=== PATIENT | female | born 1940 | race Caucasian/White ===

== ENCOUNTER 2016-08-04 19:25 | Emergency (ER) | payer MEDICARE ==
[~2016-08-04] VITALS: Ht 162.6 cm; Wt 48.0 kg
[~2016-08-04 19:25] MED LIST: PRED-503 PO; VENTAER INH; ZITHTAB PO
[2016-08-04 19:35] VITALS: BP 152/110; PULSE 116; RESP 18; TEMP 98.8; O2SAT 96
[2016-08-04 19:53] VITALS: BP 139/95; PULSE 89; RESP 18; TEMP 98.8; O2SAT 96
--- NOTE | 2016-08-04 20:07 | PD ---
HPI Chief Complaint: Injury Time Seen by Provider: 19:55 Travel History International Travel<30 days: No Contact w/Intl Traveler<30days: No Traveled to known affect area: No History of Present Illness HPI 76-year-old female presents to the emergency department for complaint of left wrist and hand injury 2 weeks ago while working on her car. Patient states she lifted the foot of her car to change the antifreeze and held up the lorenzo with her left hand. Patient denies any injury at the time. Patient noted subsequently some swelling and pain in the left radial hand and wrist area. Patient subsequently noticed over the past 2 weeks. Of swelling of the left hand and wrist area. Patient states swelling has decreased but pain has increased. Patient denies any increased redness warmth ascending erythema axillary pain or lymphadenopathy. Patient states she's been using a preformed Velcro wrist splint for the past 3 days with some symptom relief. Patient denies any previous left wrist or hand pain. Patient is right-handed. Patient has taken no medications for the discomfort. Patient reports her pain as 10 over 10 in intensity. Patient also reports range of motion and use of wrist and left hand increased pain. Patient denies history of hypertension diabetes dyslipidemia and arthritis. Patient does smoke cigarettes and occasionally drinks alcohol. PFSH Past Medical History Narrative Medical Anxiety, dyslipidemia; appendectomy hysterectomy benign tumor excision of kidney ; tobacco use alcohol use; nursing notes reviewed Anxiety: Yes High Cholesterol: Yes Diminished Hearing: No Hypertension: Yes Respiratory: Yes Immunizations Current: No Pneumonia: Yes Tetanus Vaccination: Unknown Influenza Vaccination: No ?: Not Menopausal: Yes Ectopic : Yes Past Surgical History Genitourinary Surgery: Yes (BENIGN TUMOR LT KIDNEY) Gynecologic Surgery: Yes (ECTOPIC AND HYSTERECTOMY) Hysterectomy: Yes Social History Alcohol Use: Yes (WINE OCCASIONALLY- "2 SCOTCH AND TORRES [place] (02/05)) Tobacco Use: Yes (03/27 PPD) Substance Use: No Allergies-Medications (Allergen,Severity, Reaction): Coded Allergies: Tramadol (Verified Allergy, Severe, 08/04/16) Demerol (Verified Adverse Reaction, Severe, Nausea/Vomiting, 08/04/16) Morphine (Verified Adverse Reaction, Intermediate, Nausea/Vomiting, ) Vicodin (Verified Adverse Reaction, Intermediate, N/V, 08/04/16) Reported Meds & Prescriptions Reported Meds & Active Scripts Active No Active Prescriptions or Reported Medications Review of Systems Except as stated in HPI: all other systems reviewed are Neg General / Constitutional: No: Fever, Chills HENT: No: Congestion Cardiovascular: No: Chest Pain or Discomfort Respiratory: No: Shortness of Breath Gastrointestinal: No: Abdominal Pain Genitourinary: No: Flank Pain Musculoskeletal: Positive: Limited ROM (left wrist and thumb), Pain (left wrist thumb hand) Skin: No Rash Neurologic: No: Weakness Psychiatric: No: Anxiety Hematologic/Lymphatic: No: Lymph Node Enlargement Physical Exam Narrative GENERAL: Well-developed pleasant female in no acute distress no respiratory distress SKIN: Warm and dry. HEAD: Normocephalic. EYES: No scleral icterus. No injection or drainage. NECK: Supple, trachea midline. No JVD or lymphadenopathy. CARDIOVASCULAR: Regular rate and rhythm without murmurs, gallops, or rubs. RESPIRATORY: Breath sounds equal bilaterally. No accessory muscle use. GASTROINTESTINAL: Abdomen soft, non-tender, nondistended. MUSCULOSKELETAL: No cyanosis, or edema. Left wrist tenderness over the distal radius into the anatomical snuffbox and overlying the metacarpal-carpal and metacarpal-phalangeal joints first; thumb apposition intact; capillary refill brisk and less than 2 seconds per digit; digits are neurovascular tendon intact ; no wrist edema erythema increased warmth ecchymosis or abrasion; radial pulses are 2+ to palpation; proximally no ascending erythema and no axillary lymphadenopathy. BACK: Nontender without obvious deformity. No CVA tenderness. Data Data Last Documented VS Vital Signs Date Time Temp Pulse Resp B/P Pulse Ox O2 Delivery O2 Flow Rate FiO2 08/04/16 19:53 96 Room Air 08/04/16 19:53 98.8 89 18 139/95 Orders Wrist, Complete ([id number]) (08/04/16 ) Hand, Complete ([id number]) (08/04/16 ) MDM Medical Decision Making Medical Screen Exam Complete: Yes Emergency Medical Condition: Yes Medical Record Reviewed: Yes Interpretation(s) Last Impressions Wrist X-Ray 08/04/16 0000 Signed Impressions: Service Date/Time: Thursday, August 04, 2016 20:16 - CONCLUSION: Unremarkable examination of the left wrist. Reginaldo Strickland MD Hand X-Ray 08/04/16 0000 Signed Impressions: Service Date/Time: Thursday, August 04, 2016 20:16 - CONCLUSION: Unremarkable examination of the left hand. Reginaldo Strickland MD Differential Diagnosis Sprain strain tendinitis occult fracture Narrative Course Imaging studies of the left hand and wrist obtained @ 9:04 went to room to tell patient imaging results and patient had eloped Diagnosis Primary Impression: Left wrist sprain Qualified Code: S63.502A - Left wrist sprain, initial encounter Referrals: Primary Care Physician as needed Additional Instructions: Continue to use Velcro splint as needed May take as tolerated acetaminophen and/or ibuprofen for minor to moderate pain Follow-up with your primary care provider as needed Return to the emergency department for any concerns or change in condition or as needed Scripts No Active Prescriptions or Reported Meds Disposition: 01 DISCHARGE HOME Condition: Stable Liliya Joya MD August 04, 2016 20:07
--- NOTE | 2016-08-04 20:36 | RADHPO ---
EXAM DATE/TIME: 08/04/2016 20:16 [facility] COMPARISON: No previous studies available for comparison. INDICATIONS : Entire left wrist pain after lifting car lorenzo. MEDICAL HISTORY : None. SURGICAL HISTORY : None. ENCOUNTER: Initial ACUITY: 2 weeks PAIN SCORE: 8/10 LOCATION: Left upper extremity FINDINGS: Three view examination of the left wrist demonstrates no soft tissue swelling, dislocation, or fractu re. The carpal bones are in normal alignment. The joint spaces are maintained. Bony mineralization is normal. CONCLUSION: Unremarkable examination of the left wrist. Reginaldo Strickland MD on August 04, 2016 at 20:33 Board Certified Radiologist. This report was verified electronically.
--- NOTE | 2016-08-04 20:37 | RADHPO ---
EXAM DATE/TIME: 08/04/2016 20:16 [facility] COMPARISON: No previous studies available for comparison. INDICATIONS : Entire left hand pain after lifting car lorenzo. MEDICAL HISTORY : None. SURGICAL HISTORY : None. ENCOUNTER: Initial ACUITY: 2 weeks PAIN SCORE: 8/10 LOCATION: Left upper extremity FINDINGS: Three view examination of the left hand demonstrates no soft tissue swelling, dislocation, or fractur e. The carpal bones appear intact. The interphalangeal and metacarpophalangeal joints are intact. Bony mineralization is normal. CONCLUSION: Unremarkable examination of the left hand. Reginaldo Strickland MD on August 04, 2016 at 20:34 Board Certified Radiologist. This report was verified electronically.
== END 2016-08-04 21:17 | disposition home or self-care (01) ==
LOC: PHED 19:25
DX: S63.502A Unspecified sprain of left wrist, initial encounter (principal); M79.642 Pain in left hand; I10 Essential (primary) hypertension; E78.5 Hyperlipidemia, unspecified; F17.200 Nicotine dependence, unspecified, uncomplicated; Z87.09 Personal history of other diseases of the respiratory system; Z86.59 Personal history of other mental and behavioral disorders; X58.XXXA Exposure to other specified factors, initial encounter
CPT/HCPCS: 73110; 73130; 99283

== ENCOUNTER 2016-08-24 11:12 | Emergency (ER) | payer SELFPAY ==
[~2016-08-24] VITALS: Ht 162.6 cm; Wt 47.9 kg
[2016-08-24 11:19] VITALS: BP 159/95; PULSE 119; RESP 15; TEMP 98.6; O2SAT 95
--- NOTE | 2016-08-24 11:57 | PD ---
HPI Chief Complaint: Pain: Acute or Chronic Time Seen by Provider: 11:51 Travel History International Travel<30 days: No Contact w/Intl Traveler<30days: No Traveled to known affect area: No History of Present Illness HPI 76-year-old female presents to the emergency room for evaluation of left wrist pain and swelling for the past several weeks. Patient states she first injured it by trying to push up on a heavy lorenzo. The following day she developed extreme pain in her left wrist. She tried to take care of herself but the pain kept getting worse. She came to the emergency room 10 days ago where she had x- rays done but states she could not wait for the results. Patient states over the past 2 days it has become excruciating. She has been taking Aleve at night to help with the pain. Patient localizes the pain to the ulnar wrist and thumb. Pain is severe with active range of motion. Patient states she has been unable to do her hair or perform any activities of daily living. PFSH Past Medical History Anxiety: Yes High Cholesterol: Yes Diminished Hearing: No Hypertension: Yes Respiratory: Yes Immunizations Current: No Pneumonia: Yes Tetanus Vaccination: Unknown ?: Not Menopausal: Yes Ectopic : Yes Past Surgical History Genitourinary Surgery: Yes (BENIGN TUMOR LT KIDNEY) Gynecologic Surgery: Yes (ECTOPIC AND HYSTERECTOMY) Hysterectomy: Yes Social History Alcohol Use: Yes (WINE OCCASIONALLY- "2 SCOTCH AND TORRES TONIGHT (02/05)) Tobacco Use: Yes (03/27 PPD) Substance Use: No Allergies-Medications (Allergen,Severity, Reaction): Coded Allergies: Tramadol (Verified Allergy, Severe, 08/24/16) Demerol (Verified Adverse Reaction, Severe, Nausea/Vomiting, 08/24/16) Morphine (Verified Adverse Reaction, Intermediate, Nausea/Vomiting, 08/24/16 ) Vicodin (Verified Adverse Reaction, Intermediate, N/V, 08/24/16) Reported Meds & Prescriptions Reported Meds & Active Scripts Active No Active Prescriptions or Reported Medications Review of Systems Except as stated in HPI: all other systems reviewed are Neg Physical Exam Narrative GENERAL: Well-nourished, well-developed female in no acute distress. Afebrile. Ambulatory. SKIN: Focused skin assessment warm/dry. No erythema or ecchymosis. HEAD: Normocephalic. EYES: No scleral icterus. No injection or drainage. NECK: Supple, trachea midline. No JVD or lymphadenopathy. CARDIOVASCULAR: Regular rate and rhythm without murmurs, gallops, or rubs. RESPIRATORY: Breath sounds equal bilaterally. No accessory muscle use. EXTREMITY: Left wrist extremely tender to palpation on the ulnar side. Tenderness to palpation of the thumb. Less than 2 second capillary refill distally. 2+ radial pulse. Limited range of motion of the wrist secondary to pain. No significant pain with passive range of motion. Mild to moderate edema of the wrist. Compartments soft. Data Data Last Documented VS Vital Signs Date Time Temp Pulse Resp B/P Pulse Ox O2 Delivery O2 Flow Rate FiO2 08/24/16 11:19 98.6 119 15 159/95 95 Orders Hand, Complete ([id number]) (08/24/16 ) Acetamin-Hydrocod 325-5 Mg ([place] 5-325 (08/24/16 12:00) Ondansetron Odt (Zofran Odt) (08/24/16 12:00) MDM Medical Decision Making Medical Screen Exam Complete: Yes Emergency Medical Condition: Yes Medical Record Reviewed: Yes Differential Diagnosis Sprain versus tenosynovitis versus occult fracture Narrative Course 76-year-old female presents to the emergency room for evaluation of worsening left wrist pain. Patient injured her wrist approximately 2 weeks ago. She came to the emergency room 10 days ago and had x-rays that were negative. States 2 days ago it worsened. Pain is localized to the left thumb and right ulnar wrist. Worsened with any range of motion. Patient refuses to move her wrist secondary to pain but there is no pain with passive range of motion. Left wrist is neurovascularly intact with 2+ radial pulse. No erythema or ecchymosis. Mild edema of the left wrist. Repeat x-rays were performed to rule out occult fracture. X-rays were negative. She was given Lortab in the emergency room because she was crying in pain and states it improved her symptoms. She'll be discharged with prescription for the same. She was given a Velcro wrist splint in the emergency room. Patient will follow up with a hand surgeon if symptoms persist or return to the emergency room for worsening symptoms. She understands and agrees to plan. Diagnosis Primary Impression: Tenosynovitis of left hand Referrals: Primary Care Physician Patient Instructions: General Instructions, Tenosynovitis (ED) Additional Instructions: Rest and drink plenty of fluids. Take Lortab as directed, as needed for pain. Do not drink alcohol or drive while taking this medication. Take Tylenol with food as directed, as needed for pain. Apply ice to the affected area for 20 minutes at a time, as needed for pain and swelling. Follow-up with a primary care physician or hand surgeon. Return to the emergency room for worsening symptoms. Med/Other Pt SpecificInfo: Prescription(s) given Scripts No Active Prescriptions or Reported Meds Disposition: 01 DISCHARGE HOME Condition: Stable Vivian Marquez Aug 24, 2016 11:57
[2016-08-24] MEDS ORDERED: ACETAMINOPHEN/HYDROcodone 325 MG/5 MG TAB PO ONE (12:00)
[2016-08-24] MEDS ORDERED: ONDANSETRON ODT 4 MG TAB PO ONE (12:00)
--- NOTE | 2016-08-24 12:29 | RADHPO ---
EXAM DATE/TIME: 08/24/2016 11:57 [facility] COMPARISON: HAND LEFT COMPLETE ([id number]), August 04, 2016, 20:16. INDICATIONS : Left hand and wrist pain after lifting the lorenzo of car 2 weeks ago, pain started 2 days ago. MEDICAL HISTORY : None. SURGICAL HISTORY : None. ENCOUNTER: Initial ACUITY: 2 days PAIN SCORE: 0/10 LOCATION: Left hand FINDINGS: 3 views of the left hand demonstrate no acute fracture or dislocation. The bones are under mineralize d. No soft tissue abnormality or radiopaque foreign body is identified. CONCLUSION: Under mineralized bones. No fracture or acute finding is identified. Reginaldo Buckner MD on August 24, 2016 at 12:26 Board Certified Radiologist. This report was verified electronically.
[2016-08-24] MEDS ORDERED: HYDR-3533 PO (12:53)
[2016-08-24] MEDS ORDERED: ZOFR4TAB PO (12:53)
== END 2016-08-24 13:02 | disposition home or self-care (01) ==
LOC: PHEFT 11:12
DX: M65.9 Synovitis and tenosynovitis, unspecified (principal)
CPT/HCPCS: 73130; 99284; L3908

== ENCOUNTER 2016-11-11 13:53 | Observation (INO) | payer SELFPAY ==
[~2016-11-11] VITALS: Ht 162.6 cm; Wt 46.8 kg
[~2016-11-11 13:53] MED LIST changes: +HYDR-3533 PO; -PRED-503 PO; -VENTAER INH; -ZITHTAB PO; +ZOFR4TAB PO
[2016-11-11 13:59] VITALS: BP 168/80; PULSE 107; RESP 18; TEMP 98.7; O2SAT 97
[2016-11-11] MEDS ORDERED: ASPIRIN 81 MG CHEW TAB PO ONE (14:45)
[2016-11-11] MEDS ORDERED: SODIUM CHLORIDE 0.9% FLUSH 10 ML FLUSH IVF PRN (14:45)
--- NOTE | 2016-11-11 15:04 | PD ---
HPI Chief Complaint: Chest Pain Time Seen by Provider: 14:32 Travel History International Travel<30 days: No Contact w/Intl Traveler<30days: No Traveled to known affect area: No History of Present Illness HPI Patient 76-year-old female presents emergency Department with evaluation of chest pain under her left breast which been going on and off for the past week. She states became fairly intense today. She states that when she was walking around the grocery store today she became very sweaty and had some mild shortness of breath mild nausea. She states she had a last stress test in 1974. Endorses smoking hypertension hyperlipidemia and and a strong family history of heart disease. States currently her pain is improving with rest. PFSH Past Medical History Anxiety: Yes High Cholesterol: Yes Diminished Hearing: No Hypertension: Yes Respiratory: Yes Immunizations Current: No Pneumonia: Yes Tetanus Vaccination: Unknown Influenza Vaccination: No ?: Not Menopausal: Yes Ectopic : Yes Past Surgical History Genitourinary Surgery: Yes (BENIGN TUMOR LT KIDNEY) Gynecologic Surgery: Yes (ECTOPIC AND HYSTERECTOMY) Hysterectomy: Yes Social History Alcohol Use: Yes (WINE OCCASIONALLY- "2 SCOTCH AND TORRES TONIGHT (02/05)) Tobacco Use: Yes (/2 PPD) Substance Use: No Allergies-Medications (Allergen,Severity, Reaction): Coded Allergies: tramadol (Unverified Allergy, Severe, 11/07/16) meperidine (Unverified Adverse Reaction, Severe, Nausea/Vomiting, 11/07/16) acetaminophen (Unverified Adverse Reaction, Intermediate, N/V, 11/07/16) hydrocodone (Unverified Adverse Reaction, Intermediate, N/V, 11/07/16) morphine (Unverified Adverse Reaction, Intermediate, Nausea/Vomiting, 11/07) Reported Meds & Prescriptions Reported Meds & Active Scripts Active Zofran (Ondansetron HCl) 4 Mg Tab 4 Mg PO Q12HR PRN Lortab (Hydrocodone-Acetaminophen) 5-325 Mg Tab 1 Tab PO Q6H PRN Review of Systems Except as stated in HPI: all other systems reviewed are Neg Physical Exam Narrative GENERAL: Well-developed well-nourished no obvious distress, thin, smells of cigarette smoke. SKIN: Focused skin assessment warm/dry. HEAD: Atraumatic. Normocephalic. EYES: Pupils equal and round. No scleral icterus. No injection or drainage. ENT: No nasal bleeding or discharge. Mucous membranes pink and moist. NECK: Trachea midline. No JVD. CARDIOVASCULAR: Regular rate and rhythm. No murmur appreciated. 2+ bilateral equal pulses in all 4 extremities. RESPIRATORY: No accessory muscle use. Clear to auscultation. Breath sounds equal bilaterally. GASTROINTESTINAL: Abdomen soft, non-tender, nondistended. Hepatic and splenic margins not palpable. MUSCULOSKELETAL: No obvious deformities. No clubbing. No cyanosis. No edema. NEUROLOGICAL: Awake and alert. No obvious cranial nerve deficits. Motor grossly within normal limits. Normal speech. PSYCHIATRIC: Appropriate mood and affect; insight and judgment normal. Data Data Last Documented VS Vital Signs Date Time Temp Pulse Resp B/P Pulse Ox O2 Delivery O2 Flow Rate FiO2 11/11/16 13:59 98.7 107 18 168/80 97 Orders Electrocardiogram (11/11/16 14:42) Basic Metabolic Panel (Bmp) (11/11/16 14:42) Ckmb (Isoenzyme) Profile (11/11/16 14:42) Complete Blood Count With Diff (11/11/16 14:42) Magnesium (Mg) (11/11/16 14:42) Prothrombin Time / Inr (Pt) (11/11/16 14:42) Act Partial Throm Time (Ptt) (11/11/16 14:42) Troponin I (11/11/16 14:42) Chest, Single Ap (11/11/16 14:42) Ecg Monitoring (11/11/16 14:42) Iv Access Insert/Monitor (11/11/16 14:42) Oximetry (11/11/16 14:42) Oxygen Administration (11/11/16 14:42) Aspirin Chew (Aspirin Chew) (11/11/16 14:45) Sodium Chloride 0.9% Flush (Ns Flush) (11/11/16 14:45) Admit Order (Ed Use Only) (11/11/16 ) Place In Observation (11/11/16 16:14) Activity Bed Rest With Brp (11/11/16 16:14) Vital Signs (Adult) Q4H (11/11/16 16:14) Cardiac Rhythm .As Directed (11/11/16 16:14) Notify Dr: Other .PRN (11/11/16 16:14) Notify Parameters (11/11/16 16:14) Resp Oxygen Nasal Cannula (11/11/16 ) Diet Npo (11/12/16 Breakfast) Diet Heart Healthy (11/11/16 Dinner) Ckmb (Isoenzyme) Profile (11/11/16 16:14) Ckmb (Isoenzyme) Profile (11/11/16 19:14) Troponin I (11/11/16 16:14) Troponin I (11/11/16 19:14) Electrocardiogram (11/11/16 16:14) Electrocardiogram (11/11/16 19:14) ^ Obtain (11/11/16 16:14) Sodium Chloride 0.9% Flush (Ns Flush) (11/11/16 16:15) Sodium Chloride 0.9% Flush (Ns Flush) (11/11/16 21:00) Ondansetron Inj (Zofran Inj) (11/11/16 16:15) Nitroglycerin Sl (Nitrostat Sl) (11/11/16 16:15) Aspirin (Aspirin) (11/12/16 09:00) Assembler Body / Telemetry ANTELMO.Q8H (11/11/16 16:14) Labs Laboratory Tests Test 11/11/16 15:06 White Blood Count 6.9 TH/MM3 Red Blood Count 3.84 MIL/MM3 Hemoglobin 11.9 GM/DL Hematocrit 35.8 % Mean Corpuscular Volume 93.2 FL Mean Corpuscular Hemoglobin 31.0 PG Mean Corpuscular Hemoglobin 33.3 % Concent Red Cell Distribution Width 14.1 % Platelet Count 207 TH/MM3 Mean Platelet Volume 8.6 FL Neutrophils (%) (Auto) 69.3 % Lymphocytes (%) (Auto) 20.9 % Monocytes (%) (Auto) 7.3 % Eosinophils (%) (Auto) 2.0 % Basophils (%) (Auto) 0.5 % Neutrophils # (Auto) 4.9 TH/MM3 Lymphocytes # (Auto) 1.4 TH/MM3 Monocytes # (Auto) 0.5 TH/MM3 Eosinophils # (Auto) 0.1 TH/MM3 Basophils # (Auto) 0.0 TH/MM3 CBC Comment DIFF FINAL Differential Comment Prothrombin Time 11.0 SEC Prothromb Time International 1.0 RATIO Ratio Activated Partial 26.2 SEC Thromboplast Time Sodium Level 138 MEQ/L Potassium Level 3.5 MEQ/L Chloride Level 103 MEQ/L Carbon Dioxide Level 30.6 MEQ/L Anion Gap 4 MEQ/L Blood Urea Nitrogen 12 MG/DL Creatinine 0.67 MG/DL Estimat Glomerular Filtration 86 ML/MIN Rate Random Glucose 113 MG/DL Calcium Level 9.3 MG/DL Magnesium Level 2.0 MG/DL Total Creatine Kinase 62 U/L Troponin I LESS THAN 0.02 NG/ML MDM Medical Decision Making Medical Screen Exam Complete: Yes Emergency Medical Condition: Yes Differential Diagnosis ACS, AMI, pneumonia, esophagitis, gastritis. Narrative Course Patient roomed emerged permit, EKG troponin negative. Chest x-ray negative. Last 24 hours Impressions Chest X-Ray 11/11/16 1442 Signed Impressions: Service Date/Time: Friday, November 11, 2016 14:45 - CONCLUSION: No acute cardiopulmonary disease. Laura Pedraza MD Discussed with her that despite her negative initial workup symptoms are strongly suggestive of ACS and recommended admission to the hospital for consideration of stress testing. Initially reluctant she is ultimately agreeable. She was discussed with Dr. Graff for observation.. Diagnosis Primary Impression: Chest pain Admitting Information Admitting Physician Requests: Observation Condition: Stable Luis Hui MD Nov 11, 2016 15:04
--- NOTE | 2016-11-11 15:09 | RADRPT ---
EXAM DATE/TIME: 11/11/2016 14:45 [facility] COMPARISON: CHEST SINGLE AP, March 25, 2016, 8:15. INDICATIONS : Chest pain. MEDICAL HISTORY : Bronchitis SURGICAL HISTORY : None. ENCOUNTER: Initial ACUITY: 2 days PAIN SCORE: 8/10 LOCATION: Left lower chest FINDINGS: The lungs are clear without infiltrate, nodule, or mass. There is no appreciable pleural effusion fo r technique. Heart and mediastinum are unremarkable. Skin fold is present overlapping the left upper chest. CONCLUSION: No acute cardiopulmonary disease. Laura Pedraza MD on November 11, 2016 at 15:07 Board Certified Radiologist. This report was verified electronically.
[2016-11-11 15:18] LABS: AUTOMATED NEUTROPHIL # 4.9 TH/MM3 (1.8-7.7); BASOPHIL % 0.5 % (0.0-2.0); EOSINOPHIL # 0.1 TH/MM3 (0-0.4); HEMATOCRIT 35.8 % (35.0-46.0); HEMO FLAGS DIFF FINAL; LYMPH % 20.9 % (9.0-44.0); LYMPHOCYTE # 1.4 TH/MM3 (1.0-4.8); MEAN CELL VOLUME 93.2 FL (80.0-100.0); MEAN CORPUSCULAR HGB CONC 33.3 % (32.0-36.0); MONO % 7.3 % (0.0-8.0); NEUT % 69.3 % (16.0-70.0); PLATELET COUNT 207 TH/MM3 (150-450); RED BLOOD COUNT 3.84 MIL/MM3 (4.00-5.30); RED CELL DISTRIBUTION WIDTH 14.1 % (11.6-17.2); WHITE BLOOD COUNT 6.9 TH/MM3 (4.0-11.0)
[2016-11-11 15:26] LABS: CHLORIDE 103 MEQ/L (98-107); POTASSIUM 3.5 MEQ/L (3.5-5.1); SODIUM (NA) 138 MEQ/L (136-145)
[2016-11-11 15:30] LABS: ANION GAP 4 MEQ/L (5-15); BICARBONATE 30.6 MEQ/L (21.0-32.0); BLOOD UREA NITROGEN 12 MG/DL (7-18)
[2016-11-11 15:33] LABS: GLOMERULAR FILTRATION RATE 86 ML/MIN (>89)
[2016-11-11 15:34] LABS: APTT (PATIENT) 26.2 SEC (24.3-30.1)
[2016-11-11 15:37] LABS: CREATINE KINASE 62 U/L (26-192)
[2016-11-11] MEDS ORDERED: SODIUM CHLORIDE 0.9% FLUSH 10 ML FLUSH IV FLUSH PRN (16:15)
[2016-11-11] MEDS ORDERED: ONDANSETRON HCL 4 MG/2 ML VIAL IV PRN (16:15)
[2016-11-11] MEDS ORDERED: NITROGLYCERIN 0.4 MG SL 25 TABS/BTL SL PRN (16:15)
--- NOTE | 2016-11-11 16:44 | HHI.HP ---
HPI Service Chest pain center Primary Care Physician No Primary Care Physician Admission Diagnosis Chest pain Diagnoses: Chief Complaint: Chest pain History of Present Illness Patient is a 76-year-old female who admits about a week of left-sided intermittent severe chest pain which usually resolved with aspirin. Today she had increased chest pain with diaphoresis that did not resolve. She came to the emergency room was found to have elevated blood pressure of 168/80. She was also tachycardic. Patient's pain is severe described as pressure. She is very anxious and nervous about any cardiac stress testing. Last evaluation for cardiology has been over 20 years ago and which she was being followed by the weathercaster for hyperlipidemia issues. She no longer takes any medications other than aspirin as needed. Hair her chest pain has resolved and her heart rate and blood pressure improved. Patient's been recommended for evaluation chest pain center. Review of Systems Constitutional: COMPLAINS OF: Weight loss (unintentional), DENIES: Diaphoretic episodes, Fatigue, Fever, Weight gain, Chills, Dizziness, Change in appetite, Night Sweats Endocrine: DENIES: Abnorml menstrual pattern, Heat/cold intolerance, Polydipsia , Polyuria, Polyphagia Eyes: DENIES: Blurred vision, Diplopia, Eye inflammation, Eye pain, Vision loss , Photosensitivity, Double Vision Ears, nose, mouth, throat: DENIES: Tinnitus, Hearing loss, Vertigo, Nasal discharge, Oral lesions, Throat pain, Hoarseness, Ear Pain, Running Nose, Epistaxis, Sinus Pain, Toothache, Odynophagia Respiratory: DENIES: Apneas, Cough, Snoring, Wheezing, Hemoptysis, Sputum production, Shortness of breath Cardiovascular: COMPLAINS OF: Chest pain, DENIES: Palpitations, Syncope, Dyspnea on Exertion, PND, Lower Extremity Edema, Orthopnea, Claudication Gastrointestinal: DENIES: Abdominal pain, Black stools, Bloody stools, Constipation, Diarrhea, Nausea, Vomiting, Difficulty Swallowing, Anorexia Genitourinary: DENIES: Abnormal vaginal bleeding, Dysmenorrhea, Dyspareunia, Sexual dysfunction, Urinary frequency, Urinary incontinence, Urgency, Hematuria , Dysuria, Nocturia, Vaginal discharge Musculoskeletal: DENIES: Joint pain, Muscle aches, Stiffness, Joint Swelling, Back pain, Neck pain Integumentary: DENIES: Abnormal pigmentation, Pruritus, Rash, Nail changes, Breast masses, Breast skin changes, Nipple discharge Hematologic/lymphatic: DENIES: Bruising, Lymphadenopathy Immunologic/allergic: DENIES: Eczema, Urticaria Neurologic: DENIES: Abnormal gait, Headache, Localized weakness, Paresthesias, Seizures, Speech Problems, Tremor, Poor Balance Psychiatric: COMPLAINS OF: Anxiety, DENIES: Confusion, Mood changes, Depression, Hallucinations, Agitation, Suicidal Ideation, Homicidal Ideation, Delusions Except as stated in HPI: all other systems reviewed are Neg Past Family Social History Past Medical History Bladder tumor Hyperlipidemia Past Surgical History Hysterectomy Bladder tumor resection Reported Medications Reviewed in the medical record, none Allergies: Coded Allergies: tramadol (Unverified Allergy, Severe, 11/07/16) meperidine (Unverified Adverse Reaction, Severe, Nausea/Vomiting, 11/07/16) acetaminophen (Unverified Adverse Reaction, Intermediate, N/V, 11/07/16) hydrocodone (Unverified Adverse Reaction, Intermediate, N/V, 11/07/16) morphine (Unverified Adverse Reaction, Intermediate, Nausea/Vomiting, 11/07) Active Ordered Medications Reviewed in the medical record Family History Mother at 58 from sudden cardiac , father's history is unknown She has 5 brothers and 4 sisters who all live in [place] Social History Patient smokes at least half a pack tobacco, she lives with her male partner, and drinks wine and liquor Physical Exam Vital Signs Vital Signs Date Time Temp Pulse Resp B/P Pulse Ox O2 Delivery O2 Flow Rate FiO2 11/11/16 13:59 98.7 107 18 168/80 97 Physical Exam GENERAL: This is a well-nourished, well-developed patient, in no apparent distress. SKIN: No rashes, ecchymoses or lesions. Cool and dry. HEAD: Atraumatic. Normocephalic. No temporal or scalp tenderness. EYES: Pupils equal round and reactive. Extraocular motions intact. No scleral icterus. No injection or drainage. ENT: Nose without bleeding, purulent drainage or septal hematoma. Throat without erythema, tonsillar hypertrophy or exudate. Uvula midline. Airway patent. NECK: Trachea midline. No JVD or lymphadenopathy. Supple, nontender, no meningeal signs. CARDIOVASCULAR: Sinus tachycardia with systolic 3/6 murmur otherwise without gallops, or rubs. RESPIRATORY: Clear to auscultation. Breath sounds equal bilaterally. No wheezes , rales, or rhonchi. GASTROINTESTINAL: Abdomen soft, non-tender, nondistended. No hepato-splenomegaly , or palpable masses. No guarding. MUSCULOSKELETAL: Extremities without clubbing, cyanosis, or edema. No joint tenderness, effusion, or edema noted. No calf tenderness. Negative Homans sign bilaterally. NEUROLOGICAL: Awake and alert. Cranial nerves II through XII intact. Motor and sensory grossly within normal limits. Five out of 5 muscle strength in all muscle groups. Normal speech. Laboratory Laboratory Tests Test 11/11/16 15:06 White Blood Count 6.9 Red Blood Count 3.84 Hemoglobin 11.9 Hematocrit 35.8 Mean Corpuscular Volume 93.2 Mean Corpuscular Hemoglobin 31.0 Mean Corpuscular Hemoglobin 33.3 Concent Red Cell Distribution Width 14.1 Platelet Count 207 Mean Platelet Volume 8.6 Neutrophils (%) (Auto) 69.3 Lymphocytes (%) (Auto) 20.9 Monocytes (%) (Auto) 7.3 Eosinophils (%) (Auto) 2.0 Basophils (%) (Auto) 0.5 Neutrophils # (Auto) 4.9 Lymphocytes # (Auto) 1.4 Monocytes # (Auto) 0.5 Eosinophils # (Auto) 0.1 Basophils # (Auto) 0.0 CBC Comment DIFF FINAL Differential Comment Prothrombin Time 11.0 Prothromb Time International 1.0 Ratio Activated Partial 26.2 Thromboplast Time Sodium Level 138 Potassium Level 3.5 Chloride Level 103 Carbon Dioxide Level 30.6 Anion Gap 4 Blood Urea Nitrogen 12 Creatinine 0.67 Estimat Glomerular Filtration 86 Rate Random Glucose 113 Calcium Level 9.3 Magnesium Level 2.0 Total Creatine Kinase 62 Troponin I LESS THAN 0.02 Result Diagram: 11/11/16 1506 11/11/16 1506 Imaging Last Impressions Chest X-Ray 11/11/16 1442 Signed Impressions: Service Date/Time: Friday, November 11, 2016 14:45 - CONCLUSION: No acute cardiopulmonary disease. Laura Pedraza MD Assessment and Plan Problem List: (1) Chest pain, atypical ICD Code: R07.89 Status: Acute Plan: Etiology not clear but certainly patient with multiple risk factors including family history of premature sudden cardiac , age, tobacco dependency and elevated blood pressure here Continue evaluation in the chest pain center, telemetry, cardiac enzymes, likely will need some cardiac stress testing in a.m. (probably pharmacological) Oxygen, aspirin, nitroglycerin as needed Adverse reaction acetaminophen and morphine confirmed per patient tsh, echo pending (2) Anxiety ICD Code: F41.9 Status: Acute Plan: Xanax as needed Code Status full code Discussed Condition With Patient, ER Candace Nieves MD Nov 11, 2016 16:43
[2016-11-11] MEDS ORDERED: ALPRAZolam 0.5 MG TAB PO PRN (16:45)
[2016-11-11 17:44] VITALS: BP 163/98; PULSE 79; O2SAT 96
[2016-11-11 18:05] LABS: CREATINE KINASE 56 U/L (26-192)
[2016-11-11] MEDS ORDERED: SODIUM CHLORIDE 0.9% FLUSH 10 ML FLUSH IV FLUSH SCH (21:00)
[2016-11-12] MEDS ORDERED: ASPIRIN 325 MG TAB PO SCH (09:00)
--- NOTE | 2016-11-12 15:21 | EKG ---
Date Performed: 11/11/2016 Time Performed: 14:33:35 PTAGE: 76 years EKG: Sinus rhythm NORMAL ECG PREVIOUS TRACING : 03/25/2016 07.50 Compared to previous tracing, inferior ST changes have impr josselyn. DOCTOR: Carmelo Granger Interpretating Date/Time 11/12/2016 15:20:37
--- NOTE | 2016-11-12 15:23 | EKG ---
Date Performed: 11/11/2016 Time Performed: 16:37:43 PTAGE: 76 years EKG: Sinus rhythm NORMAL ECG Since PREVIOUS TRACING , no significant change noted PREVIOUS TRACIN11/11/2016 14.33 DOCTOR: Carmelo Granger Interpretating Date/Time 11/12/2016 15:20:59
== END 2016-11-11 19:33 | disposition left against medical advice (07) ==
LOC: PHED 13:53 → PHEDA 16:15
PROVIDERS: ADMIT Hospitalist; ATTEND Hospitalist
DX: R07.89 Other chest pain (principal); I10 Essential (primary) hypertension; R00.0 Tachycardia, unspecified; R06.02 Shortness of breath; R61 Generalized hyperhidrosis; E78.5 Hyperlipidemia, unspecified; F41.9 Anxiety disorder, unspecified; Z82.49 Family history of ischemic heart disease and other diseases of the circulatory system; F17.200 Nicotine dependence, unspecified, uncomplicated; Z79.899 Other long term (current) drug therapy
CPT/HCPCS: 71010; 80048; 82550; 83735; 84484; 85025; 85610; 85730; 93005; 99285; G0378

== ENCOUNTER 2017-04-10 02:26 | Emergency (ER) | payer SELFPAY ==
[~2017-04-10] VITALS: Ht 162.6 cm; Wt 45.5 kg
[2017-04-10 02:35] VITALS: BP 142/86; PULSE 98; RESP 18; TEMP 97.8; O2SAT 96
--- NOTE | 2017-04-10 02:46 | PD ---
HPI Chief Complaint: Fall Time Seen by Provider: 02:41 Travel History International Travel<30 days: No Contact w/Intl Traveler<30days: No Traveled to known affect area: No History of Present Illness HPI 76-year-old female presents to the emergency department from home by EMS transport for complaint of right-sided rib pain. According the patient 2 hours prior to arrival to the emergency department she had a slip and fall the bathroom and thinks she hit her right chest wall against the toilet bowl. Patient has had right-sided rib pain shortness of breath since that time. Patient had had a drink of alcohol prior to her fall. Patient does not typically drink alcohol. Patient does not take any blood thinning agents. Patient states she did not hit her head did not have loss of consciousness did not injure her neck did not injure her back did not injure her abdomen or extremities. The patient rates her pain as 10 over 10 in intensity and it is worsened by taking a deep breath or movement. PFSH Past Medical History Narrative Medical Anxiety dyslipidemia hypertension pneumonia alcohol use tobacco use; nursing notes reviewed Anxiety: Yes High Cholesterol: Yes Diminished Hearing: No Hypertension: Yes Respiratory: Yes Immunizations Current: No Pneumonia: Yes ?: Not LMP: MENOPAUSAL Menopausal: Yes Ectopic : Yes Past Surgical History Genitourinary Surgery: Yes (BENIGN TUMOR LT KIDNEY) Gynecologic Surgery: Yes (ECTOPIC AND HYSTERECTOMY) Hysterectomy: Yes Social History Alcohol Use: Yes (WINE OCCASIONALLY- "2 SCOTCH AND TORRES TONIGHT (02/05)) Tobacco Use: Yes (03/27 PPD) Substance Use: No Allergies-Medications (Allergen,Severity, Reaction): Coded Allergies: tramadol (Unverified Allergy, Severe, 04/10/17) meperidine (Unverified Adverse Reaction, Severe, Nausea/Vomiting, 04/10/17) acetaminophen (Unverified Adverse Reaction, Intermediate, N/V, 04/10/17) hydrocodone (Unverified Adverse Reaction, Intermediate, N/V, 04/10/17) morphine (Unverified Adverse Reaction, Intermediate, Nausea/Vomiting, 04/10) Comments Patient is NOT allergic to tylenol --takes it daily; patient is NOT allergic to hydrocodone --makes nauseated on an empty stomach Reported Meds & Prescriptions Reported Meds & Active Scripts Active Zofran Odt (Ondansetron Odt) 4 Mg Tab 4 Mg SL Q6HR PRN Percocet (Oxycodone-Acetaminophen) 5-325 mg Tab 0.5-1 Tab PO Q6H PRN Review of Systems Except as stated in HPI: all other systems reviewed are Neg General / Constitutional: No: Fever Eyes: No: Visual changes HENT: No: Headaches, Neck Pain Cardiovascular: Positive: Chest Pain or Discomfort (right sided) Respiratory: Positive: Shortness of Breath, Pleuritic Pain Gastrointestinal: No: Abdominal Pain Genitourinary: No: Flank Pain Musculoskeletal: No: Myalgias, Arthralgias Skin: No Rash Neurologic: No: Weakness Psychiatric: No: Anxiety Hematologic/Lymphatic: No: Lymph Node Enlargement Physical Exam Narrative GENERAL: Thin elderly female in no acute distress no respiratory distress SKIN: Warm and dry. HEAD: Normocephalic. EYES: No scleral icterus. No injection or drainage. NECK: Supple, trachea midline. No JVD or lymphadenopathy. CARDIOVASCULAR: Regular rate and rhythm without murmurs, gallops, or rubs. Chest wall: No abrasion or ecchymosis tenderness to palpation. RESPIRATORY: Breath sounds equal bilaterally. No accessory muscle use. GASTROINTESTINAL: Abdomen soft, non-tender, nondistended. MUSCULOSKELETAL: No cyanosis, or edema. BACK: Nontender without obvious deformity. No CVA tenderness. Data Data Last Documented VS Vital Signs Date Time Temp Pulse Resp B/P (MAP) Pulse Ox O2 Delivery O2 Flow Rate FiO2 04/10/17 02:35 97.8 98 18 142/86 (104) 96 Orders Orders Ribs, Uni (W/Exp Cxr-Min 3vw) (04/10/17 ) Ed Discharge Order (04/10/17 04:19) MDM Medical Decision Making Medical Screen Exam Complete: Yes Emergency Medical Condition: Yes Medical Record Reviewed: Yes Interpretation(s) right rib XR: LOCATION: CONCLUSION: Right eighth rib fracture. Reginaldo Vega MD on April 10, 2017 at 3:45 Board Certified Radiologist. This report was verified electronically. Reginaldo Vega MD on April 10, 2017 at 4:10 Board Certified Radiologist. This report was verified electronically. Differential Diagnosis Single versus multiple rib fractures, pneumothorax, lung contusion, hemopneumothorax, chest wall contusion Narrative Course Imaging study of the right ribs ordered Imaging study consistent with distal right eighth rib fracture no pneumothorax patient informed of imaging results and given a one-time dose of Tylenol in the emergency department she'll be taking a cab home and given a prescription for Percocet and Zofran Diagnosis Primary Impression: Right rib fracture Referrals: Primary Care Physician call for appointment Patient Instructions: General Instructions Additional Instructions: Increase fluid hydration May take acetaminophen/Tylenol as needed for pain May take ibuprofen/Advil/Motrin 200-400 mg every 6-8 hours as needed for pain associated with inflammation May take narcotic pain medication as prescribed as tolerated however be aware this can increase risk for fall, impair judgment, cause constipation; you can NOT drink alcohol and take pain medication Follow-up with your primary care provider Tried to brace your chest wall for coughing or sneezing; return immediately to the nearest emergency department if after forceful cough sneeze laugh finger twisting he developed severe chest pain and shortness of breath to have reevaluation Return to the emergency department for any concerns or change in condition Med/Other Pt SpecificInfo: Prescription(s) given Scripts Ondansetron Odt (Zofran Odt) 4 Mg Tab 4 MG SL Q6HR Y for Nausea/Vomiting, #10 TAB 0 Refills Prov: Liliya Joya MD 04/10/17 Oxycodone-Acetaminophen (Percocet) 5-325 mg Tab 0.5-1 TAB PO Q6H Y for PAIN, #7 TAB 0 Refills Prov: Liliya Joya MD 04/10/17 Disposition: 01 DISCHARGE HOME Condition: Stable Liliya Joya MD Apr 10, 2017 02:46
--- NOTE | 2017-04-10 03:49 | RADRPT ---
EXAM DATE/TIME: 04/10/2017 03:11 CORRECTION Corrected on: April 10, 2017; [facility] COMPARISON: No previous studies available for comparison. INDICATIONS : Right upper chest pain after falling in the shower. MEDICAL HISTORY : None. SURGICAL HISTORY : None. ENCOUNTER: Initial ACUITY: 1 day PAIN SCORE: 8/10 LOCATION: Right upper chest FINDINGS: Multiple views of the right ribs were performed. There is fracturing of the anterior right eighth ri b just proximal to the costochondral junction. Expiratory view of the chest is negative for pneumotho rax. There are skin folds over the lower left chest. The lung markings can be seen beyond the skin fo lds. The mediastinal structures are midline. CONCLUSION: Right eighth rib fracture. Reginaldo Vega MD on April 10, 2017 at 3:45 Board Certified Radiologist. This report was verified electronically. Reginaldo Vega MD on April 10, 2017 at 4:10 Board Certified Radiologist. This report was verified electronically.
[2017-04-10] MEDS ORDERED: PERC5TAB12 PO (04:15)
[2017-04-10] MEDS ORDERED: ZOFR4TAB3 SL (04:15)
[2017-04-10 04:32] VITALS: BP 135/85; PULSE 85; RESP 18; TEMP 98.2; O2SAT 98
== END 2017-04-10 04:35 | disposition home or self-care (01) ==
LOC: PHED 02:26
DX: S22.31XA Fracture of one rib, right side, initial encounter for closed fracture (principal); E78.00 Pure hypercholesterolemia, unspecified; I10 Essential (primary) hypertension; F17.210 Nicotine dependence, cigarettes, uncomplicated; W01.198A Fall on same level from slipping, tripping and stumbling with subsequent striking against other object, initial encounter
CPT/HCPCS: 71101; 99284

== ENCOUNTER 2017-04-22 15:39 | Emergency (ER) | payer SELFPAY ==
[~2017-04-22] VITALS: Ht 162.6 cm; Wt 45.0 kg
[~2017-04-22 15:39] MED LIST changes: -HYDR-3533 PO; +PERC5TAB12 PO; -ZOFR4TAB PO; +ZOFR4TAB3 SL
[2017-04-22 15:54] VITALS: BP 142/79; PULSE 114; RESP 16; TEMP 98.2; O2SAT 93
[2017-04-22] MEDS ORDERED: CHERSYP2 PO (16:47)
--- NOTE | 2017-04-22 16:48 | PD ---
HPI Chief Complaint: Respiratory Symptoms Time Seen by Provider: 16:44 Travel History International Travel<30 days: No Contact w/Intl Traveler<30days: No Traveled to known affect area: No History of Present Illness HPI Patient reports a recent rib fracture. States the pressure for 5 days ago she got a cold which is improving but she's had a tickle in the back of her throat for this duration that she is not able to tolerate. Mild cough. Denies nausea vomiting diarrhea or fever. Denies any chest pain shortness of breath urinary or bowel symptoms. Concerns of weight loss. PFSH Past Medical History Anxiety: Yes High Cholesterol: Yes Diminished Hearing: No Hypertension: Yes Respiratory: Yes Immunizations Current: No Pneumonia: Yes ?: Not Menopausal: Yes Ectopic : Yes Past Surgical History Genitourinary Surgery: Yes (BENIGN TUMOR LT KIDNEY) Gynecologic Surgery: Yes (ECTOPIC AND HYSTERECTOMY) Hysterectomy: Yes Social History Alcohol Use: Yes (WINE OCCASIONALLY- "2 SCOTCH AND TORRES TONIGHT (02/05)) Tobacco Use: Yes (03/27 PPD) Substance Use: No Allergies-Medications (Allergen,Severity, Reaction): Coded Allergies: tramadol (Unverified Allergy, Severe, 04/22/17) meperidine (Unverified Adverse Reaction, Severe, Nausea/Vomiting, 04/22/17) acetaminophen (Unverified Adverse Reaction, Intermediate, N/V, 04/22/17) hydrocodone (Unverified Adverse Reaction, Intermediate, N/V, 04/22/17) morphine (Unverified Adverse Reaction, Intermediate, Nausea/Vomiting, 04/22) Reported Meds & Prescriptions Reported Meds & Active Scripts Active No Active Prescriptions or Reported Medications Review of Systems General / Constitutional: No: Fever Eyes: No: Visual changes HENT: No: Headaches Cardiovascular: No: Chest Pain or Discomfort Respiratory: Positive: Cough, No: Shortness of Breath Gastrointestinal: No: Abdominal Pain Genitourinary: No: Dysuria Musculoskeletal: No: Pain Skin: No Rash Neurologic: No: Weakness Psychiatric: No: Depression Endocrine: No: Polydipsia Hematologic/Lymphatic: No: Easy Bruising Physical Exam Narrative GENERAL: Well-nourished, well-developed patient. SKIN: Focused skin assessment warm/dry. HEAD: Normocephalic. Throat nonerythematous no adenopathy mild postnasal drip EYES: No scleral icterus. No injection or drainage. NECK: Supple, trachea midline. No JVD or lymphadenopathy. CARDIOVASCULAR: Regular rate and rhythm without murmurs, gallops, or rubs. RESPIRATORY: Breath sounds equal bilaterally. No accessory muscle use. GASTROINTESTINAL: Abdomen soft, non-tender, nondistended. MUSCULOSKELETAL: No cyanosis, or edema. BACK: Nontender without obvious deformity. No CVA tenderness. Data Data Last Documented VS Vital Signs Date Time Temp Pulse Resp B/P (MAP) Pulse Ox O2 Delivery O2 Flow Rate FiO2 04/22/17 15:54 98.2 114 16 142/79 (100) 93 MDM Medical Decision Making Medical Screen Exam Complete: Yes Emergency Medical Condition: Yes Differential Diagnosis Viral syndrome, postnasal drip, allergies Narrative Course Assessment and plan discussed with patient at bedside. Patient specifically states she can take codeine. Diagnosis Primary Impression: Postnasal drip Patient Instructions: General Instructions Additional Instructions: Encouraged rest fluids and Motrin, consider vitamin C and zinc, consider boost/ ensure with meals for weight loss. Consider nasal irrigation and regular salt water gargles. Consider fluticasone nasal spray. Return to emergency room with any onset of new symptoms. Follow-up with PCP. Med/Other Pt SpecificInfo: Prescription(s) given Scripts Guaifenesin-Codeine Liq (Cheratussin AC Liq) 100-10 Mg/5 Ml Syrp 5 ML PO Q4H Y for COUGH AND COLD SYMPTOMS, #120 ML 0 Refills Do not exceed 6 doses/24 hrs. Prov: Jessee Connor MD 04/22/17 Disposition: 01 DISCHARGE HOME Condition: Good Jessee Connor MD Apr 22, 2017 16:48
== END 2017-04-22 17:16 | disposition home or self-care (01) ==
LOC: PHED 15:39
DX: R09.82 Postnasal drip (principal); R05 Cough; F41.9 Anxiety disorder, unspecified; E78.00 Pure hypercholesterolemia, unspecified; I10 Essential (primary) hypertension; F17.200 Nicotine dependence, unspecified, uncomplicated; Z88.5 Allergy status to narcotic agent; Z88.6 Allergy status to analgesic agent
CPT/HCPCS: 99283

== ENCOUNTER 2017-05-24 21:33 | Emergency (ER) | payer MEDICARE, OTHER ==
[~2017-05-24] VITALS: Ht 162.6 cm; Wt 45.0 kg
[~2017-05-24 21:33] MED LIST changes: +CHERSYP2 PO; -PERC5TAB12 PO; -ZOFR4TAB3 SL
[2017-05-24 21:40] VITALS: BP 131/82; PULSE 101; RESP 18; TEMP 98.1; O2SAT 97
[2017-05-24 22:02] LABS: AUTOMATED NEUTROPHIL # 4.1 TH/MM3 (1.8-7.7); BASOPHIL % 0.5 % (0.0-2.0); EOSINOPHIL # 0.3 TH/MM3 (0-0.4); EOSINOPHIL % 3.3 % (0.0-4.0); HEMATOCRIT 33.1 % (35.0-46.0); HEMOGLOBIN 11.4 GM/DL (11.6-15.3); LYMPH % 39.8 % (9.0-44.0); LYMPHOCYTE # 3.3 TH/MM3 (1.0-4.8); MEAN CORPUSCULAR HEMOGLOBIN 32.3 PG (27.0-34.0); MEAN CORPUSCULAR HGB CONC 34.3 % (32.0-36.0); MONO % 7.3 % (0.0-8.0); MONOCYTE # 0.6 TH/MM3 (0-0.9); NEUT % 49.1 % (16.0-70.0); PLATELET COUNT 271 TH/MM3 (150-450); RED BLOOD COUNT 3.52 MIL/MM3 (4.00-5.30); WHITE BLOOD COUNT 8.4 TH/MM3 (4.0-11.0)
--- NOTE | 2017-05-24 22:06 | PD ---
HPI Chief Complaint: Psychiatric Symptoms Time Seen by Provider: 21:42 Travel History International Travel<30 days: No Contact w/Intl Traveler<30days: No Traveled to known affect area: No History of Present Illness HPI 76-year-old white female presents emergency department under a Galvez act by PD. Patient had made suicidal statement to her who had been therefore called PD. The patient states that she was upset regarding social issues at home. She denies any toxic ingestions. No drugs. She does drink alcohol smoke cigarettes. She denies any medical complaints. PFSH Past Medical History Anxiety: Yes High Cholesterol: Yes Diminished Hearing: No Hypertension: Yes Respiratory: Yes Immunizations Current: Yes Pneumonia: Yes Menopausal: Yes Ectopic : Yes Past Surgical History Genitourinary Surgery: Yes (BENIGN TUMOR LT KIDNEY) Gynecologic Surgery: Yes (ECTOPIC AND HYSTERECTOMY) Hysterectomy: Yes Social History Alcohol Use: Yes (OCCASSIONALLY) Tobacco Use: Yes (03/27 PPD) Substance Use: No Allergies-Medications (Allergen,Severity, Reaction): Coded Allergies: tramadol (Unverified Allergy, Severe, 05/24/17) meperidine (Unverified Adverse Reaction, Severe, Nausea/Vomiting, 05/24/17) acetaminophen (Unverified Adverse Reaction, Intermediate, N/V, 05/24/17) hydrocodone (Unverified Adverse Reaction, Intermediate, N/V, 05/24/17) morphine (Unverified Adverse Reaction, Intermediate, Nausea/Vomiting, ) Reported Meds & Prescriptions Reported Meds & Active Scripts Active No Active Prescriptions or Reported Medications Review of Systems General / Constitutional: No: Fever Eyes: No: Visual changes HENT: No: Headaches Cardiovascular: No: Chest Pain or Discomfort Respiratory: No: Shortness of Breath Gastrointestinal: No: Abdominal Pain Genitourinary: No: Dysuria Musculoskeletal: No: Pain Skin: No Rash Neurologic: No: Weakness Psychiatric: Positive: Anxiety, Depression, Suicidal Ideations, Mood Disorder, No: Disorder of Thought, Substance Abuse, Homicidal Ideation Endocrine: No: Polydipsia Hematologic/Lymphatic: No: Easy Bruising Physical Exam Narrative GENERAL: Well-nourished, well-developed patient. SKIN: Warm and dry. HEAD: Normocephalic and atraumatic. EYES: No scleral icterus. No injection or drainage. ENT: No nasal drainage noted. Mucous membranes pink. Airway patent. NECK: Supple, trachea midline. Moves head freely without obvious discomfort. CARDIOVASCULAR: Regular rate and rhythm without murmurs, gallops, or rubs. RESPIRATORY: Decreased breath sounds. Few rhonchi. No wheezes. GASTROINTESTINAL: Abdomen soft, non-tender, nondistended. EXTREMITIES: No cyanosis or edema. BACK: Nontender without obvious deformity. No CVA tenderness. NEURO: Patient is alert and oriented. no sensorimotor deficits. Nonfocal. Normal speech. PSYCH: No delusions. No auditory or visual hallucinations. Data Data Last Documented VS Vital Signs Date Time Temp Pulse Resp B/P (MAP) Pulse Ox O2 Delivery O2 Flow Rate FiO2 05/24/17 21:40 98.1 101 18 131/82 (98) 97 Orders Orders Complete Blood Count With Diff (05/24/17 21:43) Comprehensive Metabolic Panel (05/24/17 21:43) Thyroid Stimulating Hormone (05/24/17 21:43) Urinalysis - C+S If Indicated (05/24/17 21:43) Psych Screen (05/24/17 21:43) Drug Screen, Random Urine (05/24/17 21:43) Alcohol (Ethanol) (05/24/17 21:43) Salicylates (Aspirin) (05/24/17 21:43) Tylenol (Acetaminophen) (05/24/17 21:43) Labs Laboratory Tests Test 05/24/17 21:45 05/24/17 22:07 White Blood Count 8.4 TH/MM3 Red Blood Count 3.52 MIL/MM3 Hemoglobin 11.4 GM/DL Hematocrit 33.1 % Mean Corpuscular Volume 94.0 FL Mean Corpuscular Hemoglobin 32.3 PG Mean Corpuscular Hemoglobin Concent 34.3 % Red Cell Distribution Width 15.0 % Platelet Count 271 TH/MM3 Mean Platelet Volume 8.0 FL Neutrophils (%) (Auto) 49.1 % Lymphocytes (%) (Auto) 39.8 % Monocytes (%) (Auto) 7.3 % Eosinophils (%) (Auto) 3.3 % Basophils (%) (Auto) 0.5 % Neutrophils # (Auto) 4.1 TH/MM3 Lymphocytes # (Auto) 3.3 TH/MM3 Monocytes # (Auto) 0.6 TH/MM3 Eosinophils # (Auto) 0.3 TH/MM3 Basophils # (Auto) 0.0 TH/MM3 CBC Comment DIFF FINAL Differential Comment Blood Urea Nitrogen 8 MG/DL Creatinine 0.53 MG/DL Random Glucose 89 MG/DL Total Protein 7.3 GM/DL Albumin 3.6 GM/DL Calcium Level 9.2 MG/DL Alkaline Phosphatase 85 U/L Aspartate Amino Transf (AST/SGOT) 18 U/L Alanine Aminotransferase (ALT/SGPT) 13 U/L Total Bilirubin LESS THAN 0.1 MG/DL Sodium Level 138 MEQ/L Potassium Level 3.6 MEQ/L Chloride Level 105 MEQ/L Carbon Dioxide Level 24.2 MEQ/L Anion Gap 9 MEQ/L Estimat Glomerular Filtration Rate 112 ML/MIN Thyroid Stimulating Hormone 3rd Gen 2.370 uIU/ML Salicylates Level 2.5 MG/DL Acetaminophen Level LESS THAN 2.0 MCG/ML Ethyl Alcohol Level 251 MG/DL Urine Color LIGHT-YELLOW Urine Turbidity CLEAR Urine pH 7.0 Urine Specific [place] 1.003 Urine Protein NEG mg/dL Urine Glucose (UA) NEG mg/dL Urine Ketones NEG mg/dL Urine Occult Blood NEG Urine Nitrite NEG Urine Bilirubin NEG Urine Urobilinogen LESS THAN 2.0 MG/DL Urine Leukocyte Esterase MOD Urine RBC LESS THAN 1 /hpf Urine WBC 2 /hpf Urine Squamous Epithelial Cells 1 /hpf Urine Bacteria OCC /hpf Microscopic Urinalysis Comment CULT NOT INDICATED Urine Opiates Screen NEG Urine Barbiturates Screen NEG Urine Amphetamines Screen NEG Urine Benzodiazepines Screen NEG Urine Cocaine Screen NEG Urine Cannabinoids Screen NEG MDM Medical Decision Making Medical Screen Exam Complete: Yes Emergency Medical Condition: Yes Medical Record Reviewed: Yes Interpretation(s) Laboratory Tests Test 05/24/17 21:45 05/24/17 22:07 White Blood Count 8.4 TH/MM3 Red Blood Count 3.52 MIL/MM3 Hemoglobin 11.4 GM/DL Hematocrit 33.1 % Mean Corpuscular Volume 94.0 FL Mean Corpuscular Hemoglobin 32.3 PG Mean Corpuscular Hemoglobin Concent 34.3 % Red Cell Distribution Width 15.0 % Platelet Count 271 TH/MM3 Mean Platelet Volume 8.0 FL Neutrophils (%) (Auto) 49.1 % Lymphocytes (%) (Auto) 39.8 % Monocytes (%) (Auto) 7.3 % Eosinophils (%) (Auto) 3.3 % Basophils (%) (Auto) 0.5 % Neutrophils # (Auto) 4.1 TH/MM3 Lymphocytes # (Auto) 3.3 TH/MM3 Monocytes # (Auto) 0.6 TH/MM3 Eosinophils # (Auto) 0.3 TH/MM3 Basophils # (Auto) 0.0 TH/MM3 CBC Comment DIFF FINAL Differential Comment Blood Urea Nitrogen 8 MG/DL Creatinine 0.53 MG/DL Random Glucose 89 MG/DL Total Protein 7.3 GM/DL Albumin 3.6 GM/DL Calcium Level 9.2 MG/DL Alkaline Phosphatase 85 U/L Aspartate Amino Transf (AST/SGOT) 18 U/L Alanine Aminotransferase (ALT/SGPT) 13 U/L Total Bilirubin LESS THAN 0.1 MG/DL Sodium Level 138 MEQ/L Potassium Level 3.6 MEQ/L Chloride Level 105 MEQ/L Carbon Dioxide Level 24.2 MEQ/L Anion Gap 9 MEQ/L Estimat Glomerular Filtration Rate 112 ML/MIN Thyroid Stimulating Hormone 3rd Gen 2.370 uIU/ML Salicylates Level 2.5 MG/DL Acetaminophen Level LESS THAN 2.0 MCG/ML Ethyl Alcohol Level 251 MG/DL Urine Color LIGHT-YELLOW Urine Turbidity CLEAR Urine pH 7.0 Urine Specific [place] 1.003 Urine Protein NEG mg/dL Urine Glucose (UA) NEG mg/dL Urine Ketones NEG mg/dL Urine Occult Blood NEG Urine Nitrite NEG Urine Bilirubin NEG Urine Urobilinogen LESS THAN 2.0 MG/DL Urine Leukocyte Esterase MOD Urine RBC LESS THAN 1 /hpf Urine WBC 2 /hpf Urine Squamous Epithelial Cells 1 /hpf Urine Bacteria OCC /hpf Microscopic Urinalysis Comment CULT NOT INDICATED Urine Opiates Screen NEG Urine Barbiturates Screen NEG Urine Amphetamines Screen NEG Urine Benzodiazepines Screen NEG Urine Cocaine Screen NEG Urine Cannabinoids Screen NEG Differential Diagnosis MDM: High Differential diagnoses: Schizophrenia, schizoaffective disorder, bipolar, anxiety, depression, adjustment reaction, mood disorder NOS, ODD, depressive disorder NOS, dementia, dementia with agitation, psychosis NOS, substance induced mood disorder, DMDD, Asperger syndrome, infection,electrolyte abnormality, malingering. Narrative Course Mental health screening discussed with the patient. Psychiatric screen ordered. The patient has been medically cleared. The patient has been seen by the psych screener. She does not feel that the patient is a threat to herself or others. She has contacted her who also feels comfortable taking her home. He feels comfortable with her at home. He does not feel that she is a threat to herself or others. Patient has been evaluated by Dr. Ac. He agrees with lifting the patient's Galvez act. This is medical clearance for psychiatric admission, adjustment reaction Diagnosis Primary Impression: Medical clearance for psychiatric admission Additional Impression: Adjustment reaction Qualified Codes: F43.20 - Adjustment disorder, unspecified Patient Instructions: General Instructions Additional Instructions: Rest. Follow-up with the recommendations of the psych screener Return to the ER if any problems. Med/Other Pt SpecificInfo: No Meds Exist/No RX given Scripts No Active Prescriptions or Reported Meds Disposition: 01 DISCHARGE HOME Condition: Stable Woody Domínguez May 24, 2017 22:06
[2017-05-24 22:11] LABS: ALBUMIN 3.6 GM/DL (3.4-5.0); AST (GOT) 18 U/L (15-37); BICARBONATE 24.2 MEQ/L (21.0-32.0); BLOOD UREA NITROGEN 8 MG/DL (7-18); CALCIUM 9.2 MG/DL (8.5-10.1); CHLORIDE 105 MEQ/L (98-107); CREATININE 0.53 MG/DL (0.50-1.00); GLOMERULAR FILTRATION RATE 112 ML/MIN (>89); GLUCOSE,RANDOM 89 MG/DL (74-106); SODIUM (NA) 138 MEQ/L (136-145)
[2017-05-24 22:21] LABS: ALKALINE PHOSPHATASE 85 U/L (45-117); ALT (GPT) 13 U/L (10-53); TOTAL BILIRUBIN ADULT LESS THAN 0.1 MG/DL (0.2-1.0); TOTAL PROTEIN 7.3 GM/DL (6.4-8.2)
[2017-05-24 22:22] LABS: ACETAMINOPHEN LESS THAN 2.0 MCG/ML (10.0-30.0)
[2017-05-24 22:31] LABS: BACTERIA, URINE OCC /hpf; BILIRUBIN, URINE NEG (NEG); BLOOD, URINE NEG (NEG); GLUCOSE,URINE NEG (NEG); KETONE, URINE NEG (NEG); NITRITE,URINE NEG (NEG); SQUAMOUS EPITHELIAL CELL URINE 1 /hpf (0-5); URINE COLOR LIGHT-YELLOW (YELLW/STRAW); URINE LEUKOCYTE ESTERASE MOD (NEG)
== END 2017-05-24 23:43 | disposition home or self-care (01) ==
LOC: NEPD 21:33
DX: F43.20 Adjustment disorder, unspecified (principal); F17.200 Nicotine dependence, unspecified, uncomplicated
CPT/HCPCS: 80053; 80307; 81001; 84443; 85025; 99284